=== PATIENT | male | born 1995 | race Caucasian/White ===

== ENCOUNTER 2016-07-30 13:29 | Emergency (ER) | payer OTHER ==
[~2016-07-30] VITALS: Ht 180.3 cm; Wt 120.5 kg
[~2016-07-30 13:29] MED LIST: ARIP300S3 IM; HYDR50TA76 PO
[2016-07-30 13:43] VITALS: BP 139/95; PULSE 93; RESP 16; O2SAT 98
--- NOTE | 2016-07-30 13:50 | ED.REPORT ---
HPI-Psychiatric Illness Date of Service Jul 30, 2016 ED Provider: Doc,Ed MD The patient is a 20 year old male with history of ADD/ADHD, depression, bipolar , Asperger's, and PTSD who was brought to the emergency department by police for suicidal ideation. The patient has been living at [facility] for the last month. Today police were called because the patient was threatening to harm others and also made suicidal statements. The patient states he is feeling suicidal because he has only slept "27 hours in the last month." He has not slept because his roommate stays up all night playing [employer] and he is unable to sleep through it. He denies threatening to harm others but does admit to suicidal ideation. The patient states he was sent to [facility] because was in his bed at home, unable to eat or drink, so [facility] sent him there. He also reports dealing with abdominal pain and diarrhea that has been an ongoing issue over the last 6 months. Nursing Notes Stated Complaint: PSYCH Chief Complaint: Psychiatric Complaint Nursing Notes Reviewed: Yes Allergies: Coded Allergies: quetiapine (Verified Allergy, Severe, Nausea,Vomiting, 11/29/15) lithium (Verified Allergy, Unknown, 11/29/15) Uncoded Allergies: DRINKING ALCHOHOL (Allergy, Unknown, 07/28/15) Scheduled Aripiprazole (Abilify Maintena) 300 Mg Suser.syr 9.75 MG IM once a month Scheduled PRN Hydroxyzine HCl (HydrOXYzine Hcl) 50 Mg Tablet 50 MG PO BID PRN PRN For Itching General Time Seen by MD: 13:50 Chief Complaint Suicidal ideation Hx Obtained From: Patient, Police Arrived By: Police Onset Occurred: More than a week ago... Symptom Duration: Since onset Progression Since Onset: Constant, Gradually worsening Location: : Abdomen Quality: Painful Severity: Current: Moderate Severity: Maximum: Moderate Recent Healthcare: No recent hospitalization, Recent doctor visit Similar Sx Previous: Yes Risk-Psychiatric Illness Suicide Risk Stratification RF Statements: Risk factors reviewed Past Medical History Past Medical History Notes: PCP: Dr. Lim Past Medical History Obesity ADD/ADHD Depression Bipolar Lupus skin rash schizophrenia chronic tachycardia caffeine abuse Asperger's PTSD Past Surgical History None Family History Mental illness with suicide Lupus Smoking History Never Smoker Social History Poor social support Alcohol Use: Denies alcohol use Drug Use: Denies drug use Other Social History: Frequent ED visitor, Local resident Ambulatory Status Independent Review of Systems Constitutional: Reports: Recent wt loss GI: Reports: Abdominal pain, Diarrhea Psychiatric: Reports: Depression, Stress, Suicidal ideation Complete sys rev & neg: except as marked. Physical Exam Initial Vital Signs Vital Signs (First) Date Time Temp Pulse Resp B/P Pulse Ox O2 Delivery O2 Flow Rate FiO2 07/30/16 13:43 37.4 93 16 139/95 98 Room Air Initial VS: Reviewed, Vital signs normal Head / Eyes: Atraumatic, Normocephalic, PERRL ENT: Mucous membranes moist, Conjunctiva normal, No scleral icterus Neck: Supple, Non-tender, Full range of motion Respiratory: Breath sounds normal, Clear to auscultation, No respiratory distress Cardiovascular: Regular rate & rhythm, Heart sounds normal, Intact distal pulses Abdomen / GI: Soft, Non-tender, No guarding, No rebound, No distention Lymphatic: No lymphadenopathy Extremities: Vascular intact, Neuro intact, No swelling, No tenderness Skin: Warm, Dry, No cyanosis General/Constitutional: Awake, Alert Appearance / Presentation: Positive: Obese Neurologic: Oriented X3, Speech NL Moving all extremities well Abnormal Mood/Affect: Positive: Flat affect No active suicidal intent Interpretation & Diagnostics Lab Results Interpretation Test 07/30/16 14:15 Hold Urine Received (Received) Re-Eval/Medical Decision Med Decision/Clinical Course Patient is not at imminent risk of harm to himself or others, seems to be at normal functional baseline. Patient will be discharged back to his care facility. Source of Hx: Old records Consultation : Consulted With: journeyman sheet metal worker Call Returned at: 14:31 Note: ED vp digital marketing social media and crm spoke with the patient and his mental health team. The patient is safe to be discharged home. Counseled Regarding: Diagnosis, Lab results, Need for follow-up, When/why to return to ED Discharge & Departure Impression: Primary Impression: Acute situational disturbance )( Condition at Discharge: No danger to self, No danger to others, No suicidal ideation, No homicidal ideation Disposition: Home Discharge Condition All VS Reviewed: Yes Condition: Stable Additional Instructions: Follow-up with your mental health professionals in primary care doctor regarding your ongoing concerns. Call your mental health professional, 911, or return to the ER if you feel imminently suicidal. Referrals: Nando Lim MD (PCP) Scribe Attestation Portions of this note were transcribed by Twila Fabian. I, Dr. Rivera personally performed the history, physical exam and medical decision-making; I reviewed and confirmed the accuracy of the information in the transcribed note. Signed by: Janay Figueredo, 07/30/2016 and 1440. copies to: Nando Lim MD, Timothy S DO Jul 30, 2016 13:50 Twila Fabian Jul 30, 2016 14:00
== END 2016-07-30 14:58 | disposition home or self-care (01) ==
LOC: SED 13:29
DX: F43.0 Acute stress reaction (principal); F31.9 Bipolar disorder, unspecified

== ENCOUNTER 2016-08-15 13:35 | Emergency (ER) | payer OTHER ==
[~2016-08-15] VITALS: Ht 177.8 cm; Wt 125.0 kg
[2016-08-15 13:52] VITALS: BP 118/60; PULSE 78; RESP 16; O2SAT 98
[2016-08-15] MEDS ORDERED: 0.9% Sodium Chloride 1,000 ML IV ONE ×2 (13:54→14:25)
[2016-08-15] MEDS: Ondansetron 2 mg/mL 2 mL Inj IV PRN ×2 (14:11→15:00)
[2016-08-15] MEDS ORDERED: HYDROmorphone 1 mg/mL Inj IVPUSH PRN (14:25)
[2016-08-15 14:26] LABS: BASOPHILS % (AUTO) 0.2 % (0-3); EOSINOPHILS % (AUTO) 1.1 % (0-5); MONOCYTES % (AUTO) 7.4 % (4-12); Mean Corpuscular Hemoglobin 32.2 pg (27.0-35.0); Mean Corpuscular Volume 90.3 fL (81-100); NEUTROPHILS % (AUTO) 58.1 % (40-74); Platelet Count 185 bil/L (150-400)
[2016-08-15 14:48] LABS: Magnesium 1.9 mg/dL (1.6-2.6)
--- NOTE | 2016-08-15 15:32 | DRSVH ---
PROCEDURE: CT ABDOMEN AND PELVIS WITH CONTRAST ([id number]) INDICATIONS: RLQ abd pain TECHNIQUE: After the administration of intravenous contrast, 5 mm thick sections acquired from the diaphragm to the symphysis. 5 mm coronal and sagittal reformats were acquired. For radiation dose reduction, the following was used: automated exposure control, adjustment of mA and/or kV according to patient frank petersen. COMPARISON: [facility], CT, ABD/PELVIS W/CON (PN), 09/17/2014, 11:19. FINDINGS: Image quality: Excellent. ABDOMEN: Lung bases: Lung bases are clear. Heart size is normal. Solid organs: Liver and spleen are normal in size and enhancement. Gallbladder is unremarkable. Bi liary system is non dilated. Pancreas enhances normally. No adrenal nodules. Kidneys demonstrate n ormal size and enhancement, without hydronephrosis. Peritoneum and bowel: Bowel loops demonstrate normal wall thickness and caliber. The appendix is thi n walled and gas filled. No free fluid or air. Nodes and vessels: No retroperitoneal or mesenteric adenopathy by size criteria. Aorta and inferior vena cava are normal in size. Miscellaneous: No ventral hernias. PELVIS: Genitourinary: Bladder wall thickness is normal. Miscellaneous: No inguinal hernias or adenopathy. Bones: No suspicious bony lesions. No vertebral body compression fractures. IMPRESSION: 1. Diffuse thickening of the bladder wall suspicious for cystitis. Please correspond with urinalysis. 2. Normal appendix. These findings were discussed with Dr. Rubio at 3:30 PM on 08/15/16. Dictated by: Gladis Dinh M.D. on 08/15/2016 at 15:19 Approved by: Gladis Dinh M.D. on 08/15/2016 at 15:31
--- NOTE | 2016-08-15 15:40 | ED.REPORT ---
HPI-Abd Pain M Under 40 Date of Service Aug 15, 2016 ED Provider: Silvino Rubio MD History of Present Illness: Tj is a 20 y.o. M with past medical histoy of bipolar disorder, schizophrenia. Presentes to ED via EMS from PCP office due to concern of acute apendicitis. Patient stated this abdominal pain began in February. Pain increased yesteray, increaseses with bowel movements. Assocaited with nausea, vomiting at least once per day, diarrhea with bright red streaks. Patient made appointment with PCP Dr. Devries, PCP was concerned for possible apenicitis and had patient transfered to ED. Denies fever, chills, Last mean yesterday evening. Nursing Notes Stated Complaint: ABDOMINAL PAIN Chief Complaint: Male Abdominal Pain Allergies: Coded Allergies: quetiapine (Verified Allergy, Severe, Nausea,Vomiting, 11/29/15) lithium (Verified Allergy, Unknown, 11/29/15) Uncoded Allergies: DRINKING ALCHOHOL (Allergy, Unknown, 07/28/15) Scheduled Aripiprazole (Abilify Maintena) 300 Mg Suser.syr 9.75 MG IM once a month Scheduled PRN Hydroxyzine HCl (HydrOXYzine Hcl) 50 Mg Tablet 50 MG PO BID PRN PRN For Itching Ondansetron (Zofran) 4 Mg Tablet 4 MG PO Q4H PRN PRN For Nausea General Time Seen by MD: 14:00 Chief Complaint Abdominal pain Sudden in Onset?: Yes Onset Occurred: 2 days ago Location: : Abdomen lower: RLQ Severity: Current: Pain level 5 out of 10 Severity: Maximum: Pain level 8 out of 10 Associated with: Reports: Anorexia, Nausea, Vomiting Past Medical History Past Medical History Notes: PCP: Dr. Lim Past Medical History Obesity ADD/ADHD Depression Bipolar Lupus skin rash schizophrenia chronic tachycardia caffeine abuse Asperger's PTSD Past Surgical History None Family History Mental illness with suicide Lupus Smoking History Never Smoker Social History Poor social support Alcohol Use: Denies alcohol use Drug Use: Denies drug use Other Social History: Frequent ED visitor, Local resident Ambulatory Status Independent Review of Systems Basic Review of Systems Eyes: Vision NL, No discharge ENT: Hearing NL, No pain, No nasal congestion, No pharyngeal pain Hematologic: No bleeding, No bruising Endocrine: No cold intolerance, No heat intolerance, No weight gain, No weight loss Skin: No bruising, No rash, No itch Neurologic: NL mental status, No weakness, No numbness Constitutional: Reports: Chills, Fever Respiratory: Denies: Dyspnea on exertion, Hemoptysis, Non-productive cough GI: Reports: Abdominal pain, Anorexia, Diarrhea (red streaked), Vomiting, Denies: Constipation Complete sys rev & neg: except as marked. Physical Exam Initial Vital Signs Vital Signs (First) Date Time Temp Pulse Resp B/P Pulse Ox O2 Delivery O2 Flow Rate FiO2 08/15/16 13:52 36.7 78 16 118/60 98 Room Air Initial VS: Reviewed Head / Eyes: Atraumatic, Normocephalic, PERRL ENT: Mucous membranes moist, Conjunctiva normal, No scleral icterus Neck: Supple, Non-tender, Full range of motion Lymphatic: No lymphadenopathy Extremities: Vascular intact, Neuro intact, No swelling, No tenderness Skin: Warm, Dry, No cyanosis Neurologic: Alert, Oriented, Nonfocal Psychiatric: Mood/affect normal, Behavior normal, Normal thought content General/Constitutional: Awake, Alert, No acute distress, Well appearing Respiratory / Chest: Breath sounds NL, Breath sounds = bilat, No respiratory distress, No rales, No rhonchi, No wheezing, No stridor Cardiovascular: Heart rate NL, Regular rhythm, Heart sounds NL, Peripheral circulation NL Tenderness/Guarding/Rebound: Positive: Rebound localized (right lower quadrant) , Tender RLQ... (Moderate) Bowel Sounds / Distention: Positive: Bowel sounds hyperactive Interpretation & Diagnostics Lab Results Interpretation Result Diagram: 08/15/16 1423 08/15/16 1423 Test 08/15/16 14:23 08/15/16 14:25 08/15/16 15:05 White Blood Count 6.4th/mm3 (3.8-10.1) Red Blood Count 5.13mil/mm3 (4.40-5.80) Hemoglobin 16.5g/dL (13.8-17.2) Hematocrit 46.3% (41.0-50.0) Mean Corpuscular Volume 90.3fL (81-100) Mean Corpuscular Hemoglobin 32.2pg (27.0-35.0) Mean Corpuscular Hemoglobin Concent 35.6% (32.0-37.0) Red Cell Distribution Width 12.4% (12.3-15.4) Platelet Count 185bil/L (150-400) Neutrophils (%) (Auto) 58.1% (40-74) Lymphocytes (%) (Auto) 33.2% (14-46) Monocytes (%) (Auto) 7.4% (4-12) Eosinophils (%) (Auto) 1.1% (0-5) Basophils (%) (Auto) 0.2% (0-3) Sodium Level 140mEq/L (134-144) Potassium Level 4.2mEq/L (3.5-5.2) Chloride Level 101mEq/L (97-108) Carbon Dioxide Level 27mmol/L (18-29) Blood Urea Nitrogen 14mg/dL (6-20) Creatinine 0.71mg/dL (0.76-1.27) Estimat Glomerular Filtration Rate 149mL/min (>59) Glucose Level 87mg/dL (60-99) Calcium Level 8.8mg/dL (8.5-10.1) Magnesium Level 1.9mg/dL (1.6-2.6) Total Bilirubin 0.4mg/dL (0.0-1.2) Aspartate Amino Transf (AST/SGOT) 21U/L (0-50) Alanine Aminotransferase (ALT/SGPT) 22U/L (0-44) Alkaline Phosphatase 62U/L (25-150) Total Protein 7.0g/dL (6.4-8.4) Albumin 4.6g/dL (3.4-5.0) Lipase 23U/L (13-60) Hold Christopher Top Tube Received (Received) Hold Urine Received (Received) Re-Eval/Medical Decision Med Decision/Clinical Course Tj is a 20 y.o. M with past medical histoy of bipolar disorder, schizophrenia. Presentes to ED via EMS from PCP office due to concern of acute apendicitis. DDX appendicitis, gastroenteritis, IBD, IBS CBC, Normal CMP normal CT abdomen and pelvis negative for apendicitis US apendicitis negative Severity: Non life-threatening Patient Discharge & Departure Primary Impression: Generalized abdominal pain Disposition: Home Patient Instructions: Acute Abdominal Pain (DC), Acute Abdominal Pain (ED) Additional Instructions: During you visit to [facility] Emergency Department we obtained blood work for infectious markers, hemoglobin levels, and electrolytes. We obtained high resolution imaging of your abdomen, negative for an acute infection, or other worrisome illness All your lab values were within normal limits and your imaging showed no acute processes or abnormalities. Your vital signs were stable and safe for discharge. We will send you home with - Nausea medications: Blanca Do not hesitate to call emergency services or your primary care physician if you experience any of the following. - High unrelenting fevers. - Uncontrolled vomiting. - Severe hypertension. - Syncope or loss of consciousness. - Chest pain or severe shortness of breath. Follow up with your primary care physician in 1-2 weeks time following your emergency department visit for medication checks and general well-being. Referrals: Nando Lim MD (PCP) Attending Statement I saw and evaluated patient with resident and independently. Agree with plan and assessment as above. In brief, 20-year-old male presenting complaining of right lower quadrant abdominal pain. Labs unremarkable. Vital signs stable. CT abdomen and pelvis shows no evidence of appendicitis does show mild thickening of the bladder wall. Urine is no evidence for infection. No peritoneal signs. Patient also with chronic abdominal pain. Patient is stable for discharge home with return precautions. Follow up primary doctor. copies to: Nando Lim MD, AARON J DO Aug 15, 2016 14:12 Silvino Rubio MD Aug 17, 2016 10:02
[2016-08-15] MEDS ORDERED: ONDA4TAB6 PO (15:42)
--- NOTE | 2016-08-15 15:47 | DRSVH ---
PROCEDURE: US APPENDIX INDICATIONS: RLQ r/o appy TECHNIQUE: Real-time focused scanning was performed of the abdomen with attention to the appendix, with image do cumentation. COMPARISON: None. FINDINGS: Limited evaluation of the right lower quadrant demonstrates no abnormalities. The appendix is not cl early identified sonographically. No abnormal fluid collections or masses seen. IMPRESSION: Appendix is not visualized and cannot be evaluated. Dictated by: Trent Pierson RRCrow Interpreted: Daryl Mercer MD on 08/15/2016 at 15:46 Transcribed by: CORINA on 08/15/2016 at 15:47 Approved by: Daryl Mercer M.D. on 08/17/2016 at 15:35
[2016-08-15 16:27] VITALS: BP 123/53; PULSE 86; RESP 12; O2SAT 100
[2016-08-15 16:28] VITALS: BP 123/53; PULSE 86; RESP 12; O2SAT 100
== END 2016-08-15 16:29 | disposition home or self-care (01) ==
LOC: EDUNIT# 13:35 → EDBD 13:35 → SED 13:35
DX: R10.84 Generalized abdominal pain (principal); Z88.8 Allergy status to other drugs, medicaments and biological substances; Z91.048 Other nonmedicinal substance allergy status
CPT/HCPCS: 36415; 74177; 76705; 80053; 83690; 83735; 85025; 96361; 96374; 96375; 96376; 99285; J1170; J2405; J7030; Q9967